=== PATIENT | male | born 1935 | race Caucasian/White ===

== ENCOUNTER → 2018-05-18 | Outpatient (REF) | payer MEDICARE ==
[2018-05-18 14:00] LABS: APPEARANCE, URINE CLEAR (CLEAR); BACTERIA, URINE AUTO NEGATIVE (NEGATIVE); BILIRUBIN, URINE AUTO NEGATIVE (NEGATIVE); BLOOD, URINE BLOOD NEGATIVE (NEGATIVE); COLOR, URINE YELLOW (YELLOW); GLUCOSE, URINE (UA) AUTO NEGATIVE (NEGATIVE); KETONE, URINE AUTO NEGATIVE (NEGATIVE); LEUKOCYTE ESTERASE, URINE AUTO NEGATIVE (NEGATIVE); MUCUS, URINE SMALL (NEGATIVE); NITRITE, URINE AUTO NEGATIVE (NEGATIVE); PROTEIN, URINE AUTO NEGATIVE (NEGATIVE); RBC, URINE AUTO 0 /HPF (0-3); SPECIFIC GRAVITY URINE AUTO 1.025 (1.002-1.035); SQUAMOUS EPITHELIAL CELL UR AU 0 /HPF (0-6); UROBILINOGEN, URINE AUTO 0.2 mg/dL (0.0-2.0); WBC, URINE AUTO 1 /HPF (0-3)
== END ==
LOC: M SMT 13:24
PROVIDERS: ATTEND Nurse Practitioner Women's Health
DX: N40.0 Benign prostatic hyperplasia without lower urinary tract symptoms (principal)
CPT/HCPCS: 81001; 87086; G0463

== ENCOUNTER → 2018-05-19 | Outpatient (CLI) | payer MEDICARE ==
--- NOTE | 2018-05-19 12:29 | REP ---
URINARY BLADDER SONOGRAPHY: HISTORY: BPH. History of lower urinary tract symptoms. Check prostate volume. FINDINGS: The urinary bladder diallo are smooth. Pre-void bladder volume is calculated 172 mL . Postvoid bladder volume is calculated 31 mL (18% PVR). Prostate dimensions are 4.5 x 3.1 x 3.4 cm by trans abdominal sonography, calculated prostate volume 25 mL. Electronically Signed by Catrachito Acevedo MD 05/19/2018 06:05 P
== END ==
LOC: M RAD 09:47
PROVIDERS: ATTEND Nurse Practitioner Women's Health
DX: N40.0 Benign prostatic hyperplasia without lower urinary tract symptoms (principal)